=== PATIENT | female | born 1995 | race Caucasian/White ===

== ENCOUNTER 2019-03-19 19:07 | Emergency (ER) | payer OTHER ==
[~2019-03-19] VITALS: Ht 162.6 cm; Wt 54.4 kg
[2019-03-19 19:25] VITALS: BP 136/97
--- NOTE | 2019-03-19 19:35 | NUR ---
PT AMBULATED TO BED WITH SISTER
--- NOTE | 2019-03-19 19:44 | NUR ---
C/O EPIGASTRIC AND CRAMPING LOWER ABD/SUPRAPUBIC PAIN, X 1 WEEK. REPORTS INTERMITTENT N/V X1 MONTH BUT WORSENING X1 WEEK, 4 EPISODES TODAY. REPORTS CONSTIPATION, LBM TODAY WITH SMALL HARD STOOL. BOWEL SOUNDS ACTIVE IN ALL 4 QUADRANTS. ABDOMEN SOFT AND FLAT. PAIN 4/10. VSS. AA0X4. BED IS DOWN, LOCKED, BED RAIL X 1, ERMD TO SEE PT. DENIES MED HX OR RX.
[2019-03-19] MEDS ORDERED: ALUMINUM HYD/MAG/SIMETHICONE 30 ML, DICYCLOMINE HCL LIQUID 20 MG, LIDOCAINE VISCOUS 2% ... PO ONE ×3 (21:05)
[2019-03-19] MEDS ORDERED: ONDANSETRON 4 MG ODT PO ONE (21:05)
--- NOTE | 2019-03-19 21:36 | NUR ---
ZOFRAN AND GI COCKTAIL ADMINISTERED PO
[2019-03-19 22:02] LABS: HEMATOCRIT 40.6 % (36-48); HEMOGLOBIN 13.4 g/dL (12.0-16.0); MEAN CORPUSCULAR HEMOGLOBIN 30 pg (27-31); MEAN CORPUSCULAR HGB CONC 33 g/dL (33-37); MEAN CORPUSCULAR VOLUME 90.7 fL (80-94); PLATELET COUNT (AUTO) 215 K/uL (140-450); RED BLOOD CELL COUNT(AUTO) 4.48 MIL/uL (4.20-5.40); RED CELL DISTRIBUTION WIDTH 12.5 % (11.6-13.7); WHITE BLOOD COUNT (AUTO) 10.4 K/uL (4.8-10.8)
--- NOTE | 2019-03-19 22:03 | NUR ---
VSS AT THIS TIME. PT AA0X4. DENIES ANY PAIN AFTER GI COCKTAIL
[2019-03-19 22:24] LABS: ANION GAP 11.4 (8-16); CARBON DIOXIDE 29.2 mmol/L (21-32); CREATININE 0.7 mg/dL (0.6-1.3); POTASSIUM 3.6 mmol/L (3.5-5.1)
[2019-03-19 22:27] LABS: ALBUMIN 4.3 g/dL (3.4-5.0); TOTAL BILIRUBIN 0.6 mg/dL (0.0-1.0)
[2019-03-19 22:39] LABS: EOSINOPHILS % (MANUAL) 1 % (0-4); LYMPHOCYTES % (MANUAL) 41 % (20-46); MONOCYTES % (MANUAL) 3 % (5-12)
[2019-03-20 00:04] VITALS: BP 121/77
--- NOTE | 2019-03-20 00:04 | NUR ---
Patient discharged with v/s stable. Written and verbal after care instructions given and explained. Patient alert, oriented and verbalized understanding of instructions. Ambulatory with steady gait. All questions addressed prior to discharge. ID band removed. Patient advised to follow up with PMD. Rx of OMEPRAZOLE given. Patient educated on indication of medication including possible reaction and side effects. Opportunity to ask questions provided and answered.
== END 2019-03-20 00:04 | disposition home or self-care (01) ==
LOC: MED 19:07
DX: R10.13 Epigastric pain (principal); R11.2 Nausea with vomiting, unspecified
CPT/HCPCS: 36415; 80053; 81002; 81025; 82150; 83690; 85025; 99283; Q0162

== ENCOUNTER 2020-09-20 23:28 | Emergency (ER) | payer OTHER ==
[~2020-09-20] VITALS: Ht 162.6 cm; Wt 52.2 kg
[2020-09-20 23:57] VITALS: BP 130/90
[2020-09-21] MEDS ORDERED: ONDANSETRON 4 MG/2 ML VIAL IVP ONE (01:00)
[2020-09-21] MEDS ORDERED: NACL 0.9% 1,000 ML IV ONE (01:00)
[2020-09-21] MEDS ORDERED: KETOROLAC 30 MG/ML VIAL IVP ONE (01:00)
[2020-09-21] MEDS ORDERED: IBUP-2213 PO (02:41)
[2020-09-21] MEDS ORDERED: ONDA8TAB87 PO (02:41)
[2020-09-21] MEDS ORDERED: CIPR500T4 PO (02:41)
[2020-09-21 03:03] VITALS: BP 130/90
== END 2020-09-21 03:03 | disposition home or self-care (01) ==
LOC: MED 23:28
DX: N39.0 Urinary tract infection, site not specified (principal); R11.2 Nausea with vomiting, unspecified; R19.7 Diarrhea, unspecified; R10.13 Epigastric pain
CPT/HCPCS: 81002; 81025; 96361; 96374; 96375; 99284; J1885; J2405; J7030